=== PATIENT | female | born 1940 | race Caucasian/White ===

== ENCOUNTER → 2017-06-14 | Outpatient (CLI) | payer MEDICARE, BC ==
[~2017-06-14] MED LIST: ALTACE10 MG PO; BRILINTA90 MG PO; CELEXA10 MG PO; CHILDREN'S ASPI81 M1 PO; CLOPIDOGREL75 MG PO; DESIPRAMINE 50M50 M1 PO; DESIPRAMINE HC150 MG PO; HYDROCODONE-AP1 EAC6 PO; IRON325 PO; KLONOPIN1 MG PO; LEVAQUIN 500 M500 M2 PO; LEVAQUIN 750 M750 MG PO; LIPITOR10 MG PO; NEXIUM40 MG PO; NITROSTAT0.4 M1 PO; NORCO 5-325 TA1 EACH PO; NORPRAMIN PO; NORVASC2.5 MG PO; OMEPRAZOLE 20 M20 M1 PO; PLAVIX 75 MG TA75 M1 PO; PREVACID30 MG PO
== END ==
LOC: M.RAD 13:21
DX: Z12.31 Encounter for screening mammogram for malignant neoplasm of breast (principal)

== ENCOUNTER 2017-08-01 07:53 | Observation (INO) | payer MEDICARE, BC ==
[~2017-08-01] VITALS: Ht 167.6 cm; Wt 61.2 kg
[2017-08-01] VITALS (14 sets, daily range): BP systolic 105–166; BP diastolic 41–79
[~2017-08-01 07:53] MED LIST changes: -NITROSTAT0.4 M1 PO
[2017-08-01 08:28] LABS: HEMATOCRIT 27.8 % (37.0-47.0); HEMOGLOBIN 8.7 gm/dL (12.0-15.0); MCH 29.8 pg (26.0-34.0); MCHC 31.5 g/dL (28.0-37.0); MCV 94.8 fL (80.0-100.0); MPV 8.1 fl. (7.2-11.1); RBC 2.93 mil/uL (4.20-5.00); RDW-CV 15.9 % (10.5-14.5)
[2017-08-01 08:39] LABS: ANION GAP 11 mmol/L (7-16); BUN 15 mg/dL (7-18); CALCIUM 8.8 mg/dL (8.5-10.1); CHLORIDE 104 mmol/L (98-107); CO2 26 mmol/L (21-32); GLUCOSE 143 mg/dL (70-99); POTASSIUM 3.5 mmol/L (3.5-5.1); SODIUM 141 mmol/L (136-145)
[2017-08-01 08:40] LABS: APTT 28.8 Seconds (25.0-31.3); PROTIME 9.8 Seconds (9.20-11.50)
[2017-08-01 08:43] LABS: ALBUMIN 3.2 g/dL (3.4-5.0); ALKALINE PHOSPHATASE 100 U/L (46-116); CHOLESTEROL 117 mg/dL (<200); HDL CHOLESTEROL 46 mg/dL (>40); LDL CHOLESTEROL 55 mg/dL (<100); SGOT 16 U/L (15-37); SGPT 15 U/L (30-65); TC:HDL 2.5 Ratio (Not establshd); TOTAL BILIRUBIN 0.2 mg/dL (<0.1-1.0); TOTAL PROTEIN 7.1 g/dL (6.4-8.2); TRIGLYCERIDE 81 mg/dL (<150); VLDL 16 mg/dL (<40)
[2017-08-01 08:44] LABS: SERUM ASSESSMENT Clear
--- NOTE | 2017-08-01 17:17 | EKG ---
[place] [address] ELECTROCARDIOGRAM REPORT Name: CHIKI KHANNA Room: [address] ADM IN M.R.#: [id number] Admission: 08/01/17 Attend Phys: Edenilson Hector MD, Discharge: Date of : 42 Report #: [id number] THIS REPORT FOR: //name// [facility] Test Date: 2017-08-01 Test Time: 08:37:03 Pat Name: CHIKI KHANNA Department: Room: [facility] Gender: F Rag Boiler: [facility] : 1940 Requested By: Edenilson Hector Order Number: [id number] Reading MD: José Moore Measurements Intervals [place] Rate: 87 P: 81 ID: 161 QRS: 25 QRSD: 120 T: 74 QT: 415 QTc: 500 Interpretive Statements Sinus rhythm Nonspecific intraventricular conduction delay Anteroseptal infarct, old, possible Compared to ECG 06/04/2017 09:23:26 Intraventricular conduction delay now present Myocardial infarct finding still present Electronically Signed On 08-01-2017 17:17:19 SHERIFF'S SERGEANT by José Moore [email or web address] <ELECTRONICALLY SIGNED> By: José Moore MD, [facility] 08/01/17 1717 0837 0837 José Moore MD, [facility] /EPI
--- NOTE | 2017-08-01 17:18 | EKG ---
[place] [address] ELECTROCARDIOGRAM REPORT Name: EBONI KHANNAON Florencia Room: [address] ADM IN M.R.#: [id number] Admission: 08/01/17 Attend Phys: Edenilson Hector MD, Discharge: Date of : 42 Report #: [id number] THIS REPORT FOR: //name// [facility] Test Date: 2017-08-01 Test Time: 11:27:10 Pat Name: CHIKI KHANNA Department: Room: [facility] Gender: F New Media Strategist: : 1940 Requested By: Edenilson Hector Order Number: [id number] Concepcion MD: José Moore Measurements Intervals [place] Rate: 99 P: 82 ND: 171 QRS: 18 QRSD: 118 T: 76 QT: 411 QTc: 528 Interpretive Statements Sinus rhythm Right atrial enlargement LVH with secondary repolarization abnormality Anterior Q waves, possibly due to LVH Prolonged QT interval Compared to ECG 06/04/2017 09:23:26 Atrial abnormality now present Left ventricular hypertrophy now present Early repolarization now present Q waves now present Prolonged QT interval now present Myocardial infarct finding no longer present Electronically Signed On 08-01-2017 17:18:35 NUCLEAR RADIATION ENGINEER by oJsé Moore [email or web address] <ELECTRONICALLY SIGNED> By: José Moore MD, FACC 08/01/17 1718 1127 1127 José Moore MD, FACC /EPI
[2017-08-02] VITALS: BP 127/49
[2017-08-02 03:44] VITALS: BP 143/65
[2017-08-02 05:21] LABS: HEMOGLOBIN 7.2 gm/dL (12.0-15.0); MCH 29.9 pg (26.0-34.0); MCHC 31.5 g/dL (28.0-37.0); MCV 94.8 fL (80.0-100.0); MPV 8.2 fl. (7.2-11.1); RBC 2.43 mil/uL (4.20-5.00); RDW-CV 15.8 % (10.5-14.5); WBC 6.6 thou/uL (4.0-11.0)
[2017-08-02 05:50] LABS: CALCIUM 7.7 mg/dL (8.5-10.1); CREATININE 0.7 mg/dL (0.6-1.3); POTASSIUM 3.7 mmol/L (3.5-5.1)
[2017-08-02 05:58] LABS: TROPONIN-I LEVEL 0.61 ng/mL (<0.06)
[2017-08-02 07:45] VITALS: BP 139/62
[2017-08-02] MEDS ORDERED: NITROSTAT0.4 M1 PO (10:06)
--- NOTE | 2017-08-02 10:44 | CARD ---
[address] [address] CARDIAC CATH REPORT Name: CHIKI KHANNA Room: [address] IN ..#: [id number] Admission: 08/01/17 Attend Phys: Edenilson Hector MD, Discharge: Date of : 42 Report #: [id number] THIS REPORT FOR: //name// APPROVED REPORT Patient Details Patient Status: Out-Patient Room #: The patient is a 77 year-old female Event Personnel Edenilson Hector Outsole Molder, Rebecca Tomlinson RN RN, Jordan Peralta Svoboda, Mindy RTR Monitor Procedures Performed YADIRA Place w/wo Plasty Single DARIEL; left heart catheterization and selective coronary arteriography Indication Unstable angina Risk Factors Family HistoryPeripheral Vascular Disease, Hypercholesterolemia, Hypertension, Tobacco History () Previous Procedures/Diagnoses Previous PCI Admission/Lab Medications/Medications given during procedure Angiomax bolus and infusion Procedure Narrative The patient was brought electively to the Cardiac Catheterization Laboratory and was prepped and draped in a sterile manner. The right femoral was infiltrated with 1% Lidocaine subcutaneous anesthesia. A [place] 6 FR sheath was inserted into the Right Femoral Artery. Coronary angiography was performed using coronary diagnostic catheters. The right coronary system was accessed and visualized with a Diagnostic catheter. The left coronary system was accessed and visualized with a Diagnostic catheter. The left ventricle was accessed and visualized with a Diagnostic catheter. Left ventricular/Aortic Valve gradient assessed via catheter pullback. Pre-demployment femoral angiogram was performed . Closure device was deployed with a Fr MynxGrip 6/7F. The patient tolerated the procedure well and there were no complications associated with the procedure. [place] [address] CARDIAC CATH REPORT Name: CHIKI KHANNA Florencia Room: [address] IN [facility]#: [id number] Admission: 08/01/17 Attend Phys: Edenilson Hector MD, Discharge: Date of : 42 Report #: [id number] Intraoperative Conscious Sedation Sedation start time: 09:50 Case end Time: 10:58 Fentanyl 50 mcg Versed 1.5 mg Fluoro Time: 27.5 minutes Dose: DAP 32023 cGycm2 1368 mGy Contrast Type and Amount: Visipaque 255 ml Diagnostic Cath Left Main 0% narrowing LAD Widely patent proximalmid LAD stent with 0% narrowing Diagonal 1 40% proximal first diagonal narrowing Circumflex 30% mid vessel narrowing Right Coronary Dominant vessel with 30% proximal narrowing and 90% stenosis of a prominent posterior lateral branch of the distal right coronary artery Left Ventriculography Left Ventriculography was not performed. Hemodynamics The aortic pressure is 170/74 mmHg with a mean of 105 mmHg. The left ventricular pressure is 170/18ed mmHg with a mean of mmHg. The left ventricular end diastolic pressure is 18 mmHg. There was no gradient across the aortic valve upon pullback. PCI Technique Lesion Anticoagulation was achieved with Angiomax. Patient was preloaded with Angiomax IV 8.2 ml. Percutaneous coronary intervention was performed on the posterior lateral branch of the dominant right coronary artery. The lesion stenosis prior to intervention was 90% with STACY 3 flow. A 6FR LAUNCHER 3DRC Guide Catheter was used to engage the ostium. A Design2Launch: Momo Flex 300cm Interventional Guidewire was used to cross the lesion. BALLOON DILATION A Balloon catheter Mini Trek RX 2.0 X 12 was inserted and inflated up to 19.00atm for 11seconds. Additional Inflation: 16.00atm for 11seconds. Additional Inflation: 16.00atm for 10seconds. STENT DEPLOYMENT A drug-eluting stent Xience Alpine RX 2.25X15 was inserted and inflated up to 8.00atm for 5seconds. Additional Inflation: 9.00atm for 6seconds. [place] [address] CARDIAC CATH REPORT Name: CHIKI KHANNA Room: [address]#: [id number] Admission: 08/01/17 Attend Phys: Edenilson Hector MD, Discharge: Date of : 42 Report #: [id number] Final angiography reveals 0 % stenosis with STACY 3 flow. COMMENTS There is marked tortuosity of the proximal mid portions of the dominant right coronary artery; this required use of a guideliner support catheter within the 3 [facility] guiding catheter to achieve distal positioning of drug-eluting stent Conclusion #1 significant coronary artery disease characterized by the following: A widely patent proximalmid LAD stent, B 40% narrowing of the proximal portion of the first diagonal branch, C 30% narrowing of the midportion of the nondominant circumflex, D dominant right coronary artery with 30% proximal narrowing and 90% tubular narrowing of the prominent posterior lateral branch of the distal right coronary artery #2 moderate systemic systolic hypertension with moderate elevation of left ventricular end-diastolic pressure at rest #3 successful percutaneous coronary intervention with deployment of drug-eluting stent at the site of 90% narrowing of the posterolateral branch of the dominant right coronary artery with 0% residual narrowing following stent deployment and STACY-3 flow the distal vessel Recommendations Smoking Cessation Aggressive Medical Therapy Medications Administered Ticagrelor <ELECTRONICALLY SIGNED> By: Edenilson Hector MD, [facility] 08/02/17 1043 1043 1043Edenilson Hector MD, FAC /INF
--- NOTE | 2017-08-02 10:49 | H ---
[address] [address] HISTORY AND PHYSICAL Name: CHIKI KHANNA Room: [address] IN .R.#: [id number] Admission: 08/01/17 Attend Phys: Edenilson Hector MD, Discharge: Date of : 42 Report #: [id number] THIS REPORT FOR: //name// CC: Edenilson Chaudhry DATE OF SERVICE: 08/01/2017 HISTORY OF PRESENT ILLNESS: The patient is a 77-year-old female with known coronary artery disease, approximately 2 months status post stenting of the LAD in the context of an acute coronary syndrome. She is also noted to have a high-grade distal right coronary stenosis, which was not approached in the acute setting. Since then, she has noted mild chest discomfort and bilateral leg discomfort compatible with claudication. She has been compliant with dual-antiplatelet therapy in the form of aspirin, Brilinta, statin, in the form of atorvastatin 10 mg daily and additional noncardiac medicines. She ambulates with mild dyspnea in the setting of antecedent cigarette smoking. She notes occasional mild chest discomfort, but nothing as bad as associated with her acute coronary syndrome. PAST MEDICAL HISTORY: Remarkable for hypercholesterolemia, known coronary artery disease, hypertension, peripheral vascular disease and obstructive airways disease. SOCIAL HISTORY: The patient is . There is a significant antecedent cigarette smoking history. REVIEW OF SYSTEMS: Remarkable for the following positives: PULMONARY: She notes dyspnea on exertion. CARDIAC: There is occasional chest pain compatible with angina. PSYCHIATRIC: She notes chronic anxiety. PHYSICAL EXAMINATION: GENERAL: Demonstrates an elderly female in no acute distress. VITAL SIGNS: Blood pressure is 160/70, pulse rate is 74, respirations are 18 per minute. NECK: Jugular venous pressure is normal. CHEST: Clear with slightly decreased breath sounds diffusely. CARDIAC: Reveals normal first and second heart sounds without murmurs or gallops. ABDOMEN: Soft and nontender. EXTREMITIES: Without edema with 1-2+ femoral pulses and trace pedal pulses. There [place] [address] HISTORY AND PHYSICAL Name: CHIKI KHANNA Room: [address] IN ..#: [id number] Admission: 08/01/17 Attend Phys: Edenilson Hector MD, Discharge: Date of : 42 Report #: [id number] IMPRESSION: 1. Unstable angina. 2. Coronary artery disease, status post acute coronary syndrome interrupted by percutaneous coronary intervention to LAD 2 months ago. 3. Hypertension. 4. Hypercholesterolemia. 5. History of significant tobacco abuse. 6. Chronic obstructive pulmonary disease. 7. Chronic anxiety. RECOMMENDATIONS: Given the aforementioned clinical scenario, I would recommend recatheterization with definition of the recently deployed LAD stent with strong consideration of intervention to the distal right artery after review of the cineangiograms. <ELECTRONICALLY SIGNED> By: Edenilson Hector MD, [facility] 08/02/17 1049 1124 [id number] [facility]ector MD, [facility] /nt
--- NOTE | 2017-08-02 10:49 | D ---
[address] [address] DISCHARGE SUMMARY Name: CHIKI KHANNA Room: [address] IN M.R.#: [id number] Admission: 08/01/17 Attend Phys: Edenilson Hector MD, Discharge: Date of : 42 Report #: [id number] THIS REPORT FOR: //name// CC: Edenilson Ansariormick DATE OF SERVICE: 08/02/2017 FINAL DISCHARGE DIAGNOSES: 1. Unstable angina. 2. Coronary artery disease. 3. Status post prior percutaneous coronary intervention of the left anterior descending and more recent percutaneous coronary intervention of the distal right coronary artery on 08/01/2016. 4. Hypertension. 5. Emphysema. 6. Hyperlipoproteinemia. 7. Peripheral vascular disease. 8. Significant antecedent cigarette smoking. PROCEDURES: 08/01/2017-left heart catheterization, selective coronary arteriography and percutaneous coronary intervention with deployment of drug-eluting stent at site of 90% tubular stenosis in the prominent posterolateral branch of the distal right coronary artery. The patient is a very pleasant 77-year-old female with coronary and peripheral vascular disease. She has underlying hypertension, hyperlipoproteinemia, and emphysema. She presented several weeks ago with acute coronary syndrome and underwent stenting of the mid LAD with a good angiographic result. She had a high-grade distal right coronary artery stenosis noted at that time, which was not approached in that setting. Since then, she has done much better, but has occasional episode of chest discomfort reflecting myocardial ischemia. She has been compliant with dual antiplatelet therapy and her other prior cardiac medicines. In this setting, I performed recatheterization on 08/01/2017, which revealed a widely patent mid LAD stent with 90% stenosis of the posterolateral branch of the dominant right coronary artery. I placed one 2.25 x 15 mm Xience Alpine drug-eluting stent in the distal right coronary artery with 0% residual narrowing and STACY 3 flow of the distal vessel. The patient did well post-procedurally with good hemostasis at the [place] [address] DISCHARGE SUMMARY Name: CHIKI KHANNA Room: [address] IN ..#: [id number] Admission: 08/01/17 Attend Phys: Edenilson Hector MD, Discharge: Date of : 42 Report #: [id number] Laboratory on 08/02/2017, revealed a sodium of 144, potassium 3.7, BUN 14, creatinine 0.7. Hemoglobin 7.2, white blood cell count 6600 with 274,000 platelets. The patient ambulated in the hallways without difficulty and there was good hemostasis at the right femoral site of catheterization. She was discharged to home on the following medications: Aspirin 81 mg daily, atorvastatin 20 mg daily, Celexa 20 mg at bedtime, clonazepam 2 mg at bedtime, desipramine 150 mg at bedtime, ferrous sulfate 325 mg at bedtime, lansoprazole or Prevacid 30 mg daily, ramipril 10 mg b.i.d., ticagrelor 90 mg b.i.d., and p.r.n. sublingual nitroglycerin. The patient is scheduled to return to see me on 09/04/2017 at 1000 hours at the [facility] office with an echocardiogram on that date. Thus, the patient is discharged to home with followup as iterate above on the above described cardiac medicines. She is in stable condition. <ELECTRONICALLY SIGNED> By: Edenilson Hector MD, FACC 08/02/17 1049 0914 [id number] Hector MD, FACC /nt
--- NOTE | 2017-08-02 20:15 | EKG ---
[place] [address] ELECTROCARDIOGRAM REPORT Name: CHIKI KHANNA Room: [address] M.R.#: [id number] Admission: 08/01/17 Attend Phys: Edenilson Hector MD, Discharge: 08/02/17 Date of : 42 Report #: [id number] THIS REPORT FOR: //name// [facility] Test Date: 2017-08-02 Test Time: 03:05:33 Pat Name: CHIKI KHANNA Department: Room: [facility] Gender: F Epic Willow Analyst: : 1940 Requested By: Edenilson Hector Order Number: [id number] Reading MD: José Moore Measurements Intervals [place] Rate: 86 P: -27 [place]: 168 QRS: 27 QRSD: 106 T: -12 QT: 417 QTc: 499 Interpretive Statements Sinus rhythm Inferior infarct, old, possible Anteroseptal infarct, age indeterminate, possible Compared to ECG 08/01/2017 11:27:10 Left ventricular hypertrophy no longer present Early repolarization no longer present Prolonged QT interval no longer present Electronically Signed On 08-02-2017 20:15:38 KNOTTER by José Moore [email or web address] <ELECTRONICALLY SIGNED> By: José Moore MD, FACC 08/02/172014 0305 0305 José Moore MD, FAC /EPI
== END 2017-08-02 12:40 | disposition home or self-care (01) ==
LOC: M.CL 07:53 → M.2W 11:18 → M.TBA-CV 11:18 → M.2W 11:18
PROVIDERS: ADMIT Internal Medicine
DX: I25.110 Atherosclerotic heart disease of native coronary artery with unstable angina pectoris (principal); I10 Essential (primary) hypertension; E78.00 Pure hypercholesterolemia, unspecified; J44.9 Chronic obstructive pulmonary disease, unspecified; F41.9 Anxiety disorder, unspecified; J43.9 Emphysema, unspecified; E78.5 Hyperlipidemia, unspecified; Z87.891 Personal history of nicotine dependence

== ENCOUNTER → 2017-10-11 | Outpatient (CLI) | payer MEDICARE, BC ==
[~2017-10-11] MED LIST changes: +NITROSTAT0.4 M1 PO
== END ==
LOC: M.ULTRA 10:27
DX: N93.9 Abnormal uterine and vaginal bleeding, unspecified (principal); N85.8 Other specified noninflammatory disorders of uterus; I10 Essential (primary) hypertension; Z78.0 Asymptomatic menopausal state

== ENCOUNTER → 2018-02-03 | Outpatient (CLI) | payer MEDICARE, BC | LOC: M.RAD 15:05 | DX: M85.89 Other specified disorders of bone density and structure, multiple sites (principal); J43.1 Panlobular emphysema; Z78.0 Asymptomatic menopausal state ==

== ENCOUNTER → 2018-07-18 | Outpatient (CLI) | payer MEDICARE, BC ==
--- NOTE | 2018-07-22 13:44 | CARDNUC ---
[place] [address] CARDIAC NUCLEAR IMAGING REPORT Name: CHIKI KHANNA Room: [facility]#: [id number] Admission: 07/18/18 Attend Phys: Florencia Noble Discharge: Date of : 42 Date of Service: 07/22/18 1344 Report #: [id number] THIS REPORT FOR: //name// APPROVED REPORT Imaging Protocol: Rest Tc-99m/Stress Tc-99m 1 day Study performed: 07/18/2018 08:15:00 Indication: Dyspnea, s/p stent Patient Location: Out-Patient Stress Tech: Stephanie Theodore Stress Nurse: Josefina Vigil RN NM Tech:EDGARDO Corado Ht: 5 ft 6 in Wt: 127 lbs BSA: 1.65 m2 BMI: 20.49 Medical History Medical History: cardiomyopathy, copd, cad, hyperlipidemia, hypertension, pvd Medications: amlodipine, asa 81, ramapril, ticagrelor Allergies: sulfa Cardiac Risk Factors: age, hyperlipidemia, hypertension, pvd, tobacco, family hx Previous Cardiac Procedures: pci Exercise History: Indeterminate Resting Data Rest SPECT myocardial perfusion imaging was performed in supine position 30 minutes following the intravenous injection of 10.5 mCi of Tc-99m Sestamibi. Time of rest injection: 0820 Date: 07/18/2018 Time of rest imagin The images were gated to evaluate regional wall motion and calculate left ventricular ejection fraction. Administration Route: IV Administration Site: Left AC Pharmacologic Stress Pharmacologic stress test was performed by injecting Regadenoson 0.4 mg IV push over 10-15 seconds immediately followed by the intravenous injection of 33.2 mCi of Tc-99m Sestamibi. Time of stress injection: 0930 Time of stress imagin Administration Route: [place] [address] CARDIAC NUCLEAR IMAGING REPORT Name: CHIKI KHANNA Room: [facility] Kelvin#: [id number] Admission: 07/18/18 Attend Phys: Florencia Noble Discharge: Date of : 42 Date of Service: 07/22/18 1344 Report #: [id number] Administration Site: Left AC Gated Stress SPECT was performed 40 minutes after stress injection. The images were gated to evaluate regional wall motion and calculate left ventricular ejection fraction. Prone imaging was performed. Stress Test Details Stress Test: Pharmacologic stress testing performed using 0.4 mg of regadenoson per 5 mL given IV over 10 seconds. Reason for pharmacologic stress test: physical limitation. HR Max Heart Rate (APMHR): 143 bpm Resting HR: 88 bpm Target HR (85% APMHR): 121 bpm Max HR Achieved: 98 bpm % of APMHR: 68 Recovery HR: 97 bpm HR response to stress: Normal HR response to stress BP Resting BP: 187/79 mmHg Max BP: 111/61 mmHg Recovery BP: 163/75 mmHg BP response to stress: Normal blood pressure response to stress. ECG Resting ECG: Sinus Rhythm Stress ECG: Sinus Rhythm ST Change: none Recovery ECG: Sinus Rhythm Recovery ST Change: negative Clinical Reason for Termination: Completed protocol Stress Symptoms: None Exercise duration: 0 min sec Exercise capacity: 1 METs Nurse Comments pt gait too unsteady to walk on treadmill Stress ECG Conclusion negative Study Quality Study: [place] [address] CARDIAC NUCLEAR IMAGING REPORT Name: CHIKI KHANNA Room: [facility]#: [id number] Admission: 07/18/18 Attend Phys: Florencia Noble Discharge: Date of : 42 Date of Service: 07/22/18 1344 Report #: [id number] Artifact: Mild Motion artifact Lung Uptake: Normal Study Data At rest, the left ventricular ejection fraction was 65%.. Post stress, the left ventricular ejection was 51%.. SSS: 8 SRS: 2 SDS: 6 TID = 1.10. Perfusion Review of SPECT images reveal at rest a small to moderate but severe intensity distal anterior and apical defect and normal perfusion all other segments. When imaged following stress the defect slightly worsens.Concerning for a small amount of distal anterior,apical ischemia.Stress prone images are unchanged from stress supine. Images were reviewed using Froontis. Wall Motion mild hypokinesis of dista anterior wall Nuclear Conclusion ECG Findings: negative for ischemia Clinical Findings: negative for ischemia Nuclear Findings: positive for ischemia Exercise Capacity: not assessed Left Ventricular Function: normal Risk Study: moderate Findings concerning for a mixed ischemia and infarct area which is small to moderate, of the distal anterior wall, apex.A moderate risk study. <Conclusion> negative <ELECTRONICALLY SIGNED> By: Cortes Meza MD, FACC 07/22/18 1344 1344 1344 Cortes Meza MD, FACC /INF
== END ==
LOC: M.NUC 06-24 17:52
DX: I25.119 Atherosclerotic heart disease of native coronary artery with unspecified angina pectoris (principal); E78.5 Hyperlipidemia, unspecified; I10 Essential (primary) hypertension; J44.9 Chronic obstructive pulmonary disease, unspecified; Z95.5 Presence of coronary angioplasty implant and graft

== ENCOUNTER → 2019-04-07 | Outpatient (CLI) | payer MEDICARE, BC ==
--- NOTE | 2019-04-07 14:52 | 2DMMODE ---
[place] [address] 2 D/M-MODE ECHOCARDIOGRAM Name: CHIKI KHANNA Room: [facility]#: [id number] Admission: 04/07/19 Attend Phys: Florencia Noble Discharge: Date of : 42 Date of Service: 04/07/19 1452 Report #: [id number] THIS REPORT FOR: //name// APPROVED REPORT Study performed: 04/07/2019 13:42:16 EXAM: Comprehensive 2D, Doppler, and color-flow Echocardiogram Patient Location: Out-Patient BSA: 1.65 HR: 98 bpm BP: 120/70 mmHg Other Information Study Quality: Good Indications CAD Hypertension/HDD 2D Dimensions IVSd: 13.60 (7-11mm) LVOT Diam: 20.47 (18-24mm) LVDd: 37.33 mm PWd: 9.90 (7-11mm) Ascending Ao: 30.14 (22-36mm) LVDs: 25.92 (25-40mm) Aortic Root: 26.00 mm Volumes Left Atrial Volume (Systole) LA ESV Index: 16.60 mL/m2 Aortic Valve AoV Peak Bert.: 1.16 m/s AO Peak Gr.: 5.34 mmHg LVOT Max P.73 mmHg AO Mean Gr.: 2.99 mmHg LVOT Mean P.36 mmHg LVOT Max V: 1.09 m/s AO V2 VTI: 21.48 cm LVOT Mean V: 0.71 m/s DESI (VTI): 3.02 cm2 LVOT V1 VTI: 19.69 cm Mitral Valve E/A Ratio: 0.53 MV Decel. Time: 252.78 ms MV E Max Bert.: 0.50 m/s MV PHT: 73.31 [place] [address] 2 D/M-MODE ECHOCARDIOGRAM Name: CHIKI KHANNA WILLY Room: [facility]#: [id number] Admission: 04/07/19 Attend Phys: Florencia Noble Discharge: Date of : 42 Date of Service: 04/07/19 1452 Report #: [id number] MVA (PHT): 3.00 cm2 TDI E/Lateral E': 8.33 E/Medial E': 7.14 Medial E' Bert.: 0.07 m/s Lateral E' Bert.: 0.06 m/s Pulmonary Valve PV Peak Bert.: 0.91 m/s PV Peak Gr.: 3.34 mmHg Left Ventricle The left ventricle is normal size. There is normal LV segmental wall motion. Mild concentric left ventricular hypertrophy. Left ventricular systolic function is normal. LVEF is 55-60%. Grade I - abnormal relaxation pattern. Right Ventricle The right ventricle is normal size. The right ventricular systolic function is normal. Atria The left atrium size is normal. The right atrium size is normal. Aortic Valve The aortic valve is normal in structure. No aortic regurgitation is present. There is no aortic valvular stenosis. Mitral Valve The mitral valve is mildly thickened. Mild mitral regurgitation. No evidence of mitral valve stenosis. Tricuspid Valve The tricuspid valve is normal in structure. There is no tricuspid valve regurgitation noted. Pulmonic Valve The pulmonary valve is normal in structure. There is no pulmonic valvular regurgitation. Great Vessels The aortic root is normal in size. IVC is normal in size and collapses >50% with inspiration. Pericardium There is no [place] [address] 2 D/M-MODE ECHOCARDIOGRAM Name: CHIKI KHANNA Room: [facility]#: [id number] Admission: 04/07/19 Attend Phys: Florencia Noble Discharge: Date of : 42 Date of Service: 04/07/19 1452 Report #: [id number] <Conclusion> The left ventricle is normal size. Mild concentric left ventricular hypertrophy. Left ventricular systolic function is normal. LVEF is 55-60%. Grade I - abnormal relaxation pattern. Mild mitral regurgitation. IVC is normal in size and collapses >50% with inspiration. <ELECTRONICALLY SIGNED> By: José Moore MD, FACC 04/07/19 145 51 51 José Moore MD, FACC /INF
== END ==
LOC: M.CRD 13:36
DX: I34.0 Nonrheumatic mitral (valve) insufficiency (principal); I25.119 Atherosclerotic heart disease of native coronary artery with unspecified angina pectoris; I11.9 Hypertensive heart disease without heart failure; Z88.2 Allergy status to sulfonamides

== ENCOUNTER → 2019-12-17 | Outpatient (CLI) | payer MEDICARE, BC | LOC: M.LAB 08:38 | PROVIDERS: ATTEND Internal Medicine Gastroenterology | DX: Z11.59 Encounter for screening for other viral diseases (principal); Z01.812 Encounter for preprocedural laboratory examination; R19.5 Other fecal abnormalities ==

== ENCOUNTER → 2019-12-25 | Outpatient (CLI) | payer MEDICARE, BC ==
[2019-12-25 14:00] LABS: ABSOLUTE BASOPHILS 0.1 thou/uL (0.0-0.2); ABSOLUTE EOSINOPHILS 0.1 thou/uL (0.0-0.7); ABSOLUTE MONOCYTES 0.2 thou/uL (0.0-1.2); ABSOLUTE NEUTROPHILS 4.3 thou/uL (1.6-8.1); BASOPHILS 1.2 %; EOSINOPHILS 1.6 %; HEMATOCRIT 33.4 % (37.0-47.0); HEMOGLOBIN 10.9 gm/dL (12.0-15.0); LYMPHOCYTES 18.1 %; MCH 29.4 pg (26.0-34.0); MCHC 32.7 g/dL (28.0-37.0); MCV 89.8 fL (80.0-100.0); MPV 7.9 fl. (7.2-11.1); NUCLEATED RBCS 0 /100WBC; PLATELET COUNT* 269 thou/uL (150-400); POLYS 75.1 %; RBC 3.72 mil/uL (4.20-5.00); RDW-CV 16.2 % (10.5-14.5); WBC 5.7 thou/uL (4.0-11.0)
[2019-12-25 14:13] LABS: ALBUMIN 3.4 g/dL (3.4-5.0); CALCIUM 8.6 mg/dL (8.5-10.1); POTASSIUM 3.2 mmol/L (3.5-5.1); TOTAL BILIRUBIN 0.2 mg/dL (<0.1-1.0); TOTAL PROTEIN 7.1 g/dL (6.4-8.2)
== END ==
LOC: M.LAB 13:00 → M.CT 14:00
PROVIDERS: ATTEND Internal Medicine Gastroenterology
DX: C18.9 Malignant neoplasm of colon, unspecified (principal); K44.9 Diaphragmatic hernia without obstruction or gangrene; J43.9 Emphysema, unspecified; D50.9 Iron deficiency anemia, unspecified; N28.1 Cyst of kidney, acquired; N20.0 Calculus of kidney; R19.09 Other intra-abdominal and pelvic swelling, mass and lump; K63.89 Other specified diseases of intestine; Z72.0 Tobacco use

== ENCOUNTER → 2020-01-14 | Outpatient (CLI) | payer MEDICARE, BC ==
--- NOTE | 2020-01-14 16:25 | CARDNUC ---
[place] [address] CARDIAC NUCLEAR IMAGING REPORT Name: RAMANALESTERCHIKI M Room: [facility]#: [id number] Admission: 01/14/20 Attend Phys: Florencia Noble Discharge: Date of : 42 Date of Service: 01/14/20 1625 Report #: [id number] THIS REPORT FOR: cc: Violet Chaudhry Linda J. DO Liston, Michael J. MD [facility] ~ APPROVED REPORT Study performed: 01/14/2020 14:23:06 Exam: Nuclear Stress Test Indication: Pre-Operative CV evaluation Patient Location: Out-Patient Stress Tech: Emilee Dai Stress Nurse: Josefina Vigil RN NM Tech:EDGARDO Corado Ht: 5 ft 6 in Wt: 128 lbs BSA: 1.65 m2 BMI: 20.65 Medical History Medical History: emphysema, , CAD s/p stent, Cardiomyopathy, COPD, HTN, Hyperlipidemia, Smoking, Pvd Medications: asa 81, atorvastatin, ramipril, brilinta Allergies: sulfa Cardiac Risk Factors: Age, Current Smoker, FHX of CAD, HTN, Hyperlipidemia, PVD Previous Cardiac Procedures: PCI Exercise History: Sedentary Stress Test Details Stress Test: Pharmacologic stress testing performed using 0.4 mg of regadenoson per 5 mL given IV over 10 seconds. Reason for pharmacologic stress test: physical limitation. HR Resting HR: 93 bpm Max Heart Rate (APMHR): 142 bpm Max HR Achieved: 101 bpm Target HR (85% APMHR): 120 bpm % of APMHR: 71 Recovery HR: 99 bpm BP Resting BP: 197/91 mmHg Max BP: 122/65 [place] [address] CARDIAC NUCLEAR IMAGING REPORT Name: CHIKI KHANNA Room: [facility]#: [id number] Admission: 01/14/20 Attend Phys: Florencia Noble Discharge: Date of : 42 Date of Service: 01/14/20 1625 Report #: [id number] Resting ECG: Sinus Rhythm Stress ECG: Sinus Tachycardia ST Change: None Arrhythmia: None Recovery ECG: Sinus Rhythm Recovery ST Change: None Recovery Arrhythmia: None Clinical Reason for Termination: Completed protocol Exercise duration: 0 min sec The patient tolerated Lexiscan infusion without significant cardiac symptoms. Nurse Comments pt unable to walk on treadmill due to generalized weakness. pt bp was 212/112, verified with manual bp. 10 mg hydralizine was ordered and given per dr chirinos order.pt had uneventful test Stress ECG Conclusion Baseline twelve-lead EKG shows sinus rhythm without significant ST segment abnormality. EKGs obtained during and post Lexiscan infusion shows sinus rhythm and sinus tachycardia with no significant ST segment changes when compared to baseline. There were no stress-induced arrhythmias. NM EXAM: Myocardial Perfusion REST/STRESS Imaging Protocol: Rest Tc-99m/Stress Tc-99m 1 day Resting Data Rest SPECT myocardial perfusion imaging was performed in supine position 30 minutes following the intravenous injection of 10.6 mCi of Tc-99m Sestamibi. Time of rest injection: 1245 Date: 01/14/2020 The images were gated to evaluate regional wall motion and calculate left ventricular ejection fraction. Administration Route: IV Administration Site: Right Hand Pharmacologic Stress Pharmacologic stress test was performed by injecting Regadenoson 0.4 mg IV push followed by the intravenous injection of 34.9 mCi of Tc-99m Sestamibi. Time of stress injection: 1450 Date: 01/14/2020 [place] [address] CARDIAC NUCLEAR IMAGING REPORT Name: CHIKI KHANNA Room: [facility]#: [id number] Admission: 01/14/20 Attend Phys: Florencia Noble Discharge: Date of : 42 Date of Service: 01/14/20 1625 Report #: [id number] Administration Route: IV Administration Site: Right Hand Gated Stress SPECT was performed 40 minutes after stress injection. The images were gated to evaluate regional wall motion and calculate left ventricular ejection fraction. Stress only was performed in the Supine position. Study Quality Study: Good Artifact: No artifact Study Data At rest, the left ventricular ejection fraction was 61%.. Post stress, the left ventricular ejection was 65%.. TID = 1.07. Perfusion There is a small in size moderate in intensity fixed defect of the mid anterior and anteroseptal wall. No other significant fixed or reversible defects are identified. Wall Motion There is a focal wall motion abnormality in the mid anterior and anteroseptal wall. Global LV systolic function is preserved. Nuclear Conclusion ECG Findings: negative for ischemia Clinical Findings: negative for ischemia Nuclear Findings: negative for ischemia Exercise Capacity: not assessed Left Ventricular Function: Preserved Perfusion study suggest a focal infarct of the mid anterior anteroseptal wall. There was no evidence of stress-induced ischemia. Global LV systolic function is preserved. This is not a high risk study. <Conclusion> Baseline twelve-lead EKG shows sinus rhythm without significant ST segment abnormality. EKGs obtained during and post Lexiscan infusion shows sinus rhythm and sinus tachycardia with no [place] [address] CARDIAC NUCLEAR IMAGING REPORT Name: CHIKI KHANNA Room: [facility]#: [id number] Admission: 01/14/20 Attend Phys: Florencia Noble Discharge: Date of : 42 Date of Service: 01/14/20 1625 Report #: [id number] segment changes when compared to baseline. There were no stress-induced arrhythmias. <ELECTRONICALLY SIGNED> By: José Moore MD, FACC 01/14/20 1625 1625 1625 José Moore MD, FAC /INF
== END ==
LOC: M.NUC 04-08 11:34 → M.CRD 11-23 08:00 → M.NUC 11-23 08:00
PROVIDERS: ATTEND Internal Medicine
DX: I25.10 Atherosclerotic heart disease of native coronary artery without angina pectoris (principal); Z95.5 Presence of coronary angioplasty implant and graft

== ENCOUNTER 2020-03-15 12:46 | Emergency (ER) | payer MEDICARE, BC ==
[~2020-03-15] VITALS: Ht 160 cm; Wt 58.1 kg
[2020-03-15] MEDS ORDERED: NEXIUM40 M2 PO (12:58)
[2020-03-15] MEDS ORDERED: NORCO 5-325 TA1 EAC2 PO (16:31)
[2020-03-15 16:38] VITALS: BP 177/86
== END 2020-03-15 16:39 | disposition home or self-care (01) ==
LOC: M.ERS 12:46
DX: S22.42XA Multiple fractures of ribs, left side, initial encounter for closed fracture (principal); I10 Essential (primary) hypertension; E78.5 Hyperlipidemia, unspecified; I25.10 Atherosclerotic heart disease of native coronary artery without angina pectoris; I73.9 Peripheral vascular disease, unspecified; Z95.5 Presence of coronary angioplasty implant and graft; Z88.2 Allergy status to sulfonamides; X58.XXXA Exposure to other specified factors, initial encounter; Y93.89 Activity, other specified; Y92.89 Other specified places as the place of occurrence of the external cause; Y99.8 Other external cause status

== ENCOUNTER 2020-05-04 12:30 | Emergency (ER) | payer MEDICARE, BC ==
[~2020-05-04] VITALS: Ht 167.6 cm; Wt 50.4 kg
[~2020-05-04 12:30] MED LIST changes: +NEXIUM40 M2 PO; +NORCO 5-325 TA1 EAC2 PO
[2020-05-04 12:45] VITALS: BP 115/64
== END 2020-05-04 13:23 | disposition home or self-care (01) ==
LOC: M.ERS 12:30
DX: S01.112D Laceration without foreign body of left eyelid and periocular area, subsequent encounter (principal); I25.10 Atherosclerotic heart disease of native coronary artery without angina pectoris; I10 Essential (primary) hypertension; E78.5 Hyperlipidemia, unspecified; Z88.2 Allergy status to sulfonamides; X58.XXXD Exposure to other specified factors, subsequent encounter

== ENCOUNTER 2020-06-26 13:39 | Emergency (ER) | payer MEDICARE, BC ==
[~2020-06-26] VITALS: Ht 167.6 cm; Wt 51.3 kg
[2020-06-26 14:01] LABS: ABSOLUTE LYMPHOCYTES 0.5 thou/uL (0.8-5.3); ABSOLUTE MONOCYTES 0.5 thou/uL (0.0-1.2); ABSOLUTE NEUTROPHILS 4.9 thou/uL (1.6-8.1); BASOPHILS 0.8 %; EOSINOPHILS 0.6 %; HEMATOCRIT 26.3 % (37.0-47.0); HEMOGLOBIN 8.7 gm/dL (12.0-15.0); LYMPHOCYTES 8.3 %; MCH 29.6 pg (26.0-34.0); MCHC 32.9 g/dL (28.0-37.0); MCV 90.1 fL (80.0-100.0); MONOCYTES 7.9 %; MPV 7.9 fl. (7.2-11.1); NUCLEATED RBCS 0 /100WBC; PLATELET COUNT* 309 thou/uL (150-400); POLYS 82.4 %; RBC 2.92 mil/uL (4.20-5.00); RDW-CV 17.7 % (10.5-14.5); WBC 5.9 thou/uL (4.0-11.0)
[2020-06-26 14:08] LABS: CALCIUM 8.5 mg/dL (8.5-10.1); CREATININE 1.2 mg/dL (0.6-1.3); POTASSIUM 3.6 mmol/L (3.5-5.1)
[2020-06-26 14:11] LABS: APTT 29.9 Seconds (25.0-31.3); PROTIME 9.8 Seconds (9.20-11.50)
[2020-06-26 14:12] LABS: ALBUMIN 2.4 g/dL (3.4-5.0); TOTAL BILIRUBIN 0.4 mg/dL (<0.1-1.0); TOTAL PROTEIN 6.4 g/dL (6.4-8.2)
[2020-06-26 14:26] LABS: INR < 0.9
[2020-06-26 16:27] LABS: URINE BILIRUBIN NEGATIVE (Negative); URINE BLOOD 1+ (Negative); URINE COLOR YELLOW; URINE GLUCOSE-RANDOM NEGATIVE (Negative); URINE KETONES TRACE (Negative); URINE LEUKOCYTES-REFLEX 1+ (Negative); URINE NITRITE-REFLEX NEGATIVE (Negative); URINE PROTEIN 2+ (Negative); URINE SPECIFIC GRAVITY <= 1.005 (1.005-1.030); URINE UROBILINOGEN 0.2 E.U./dl (0.2-1.0)
[2020-06-26 16:28] LABS: URINE CLARITY CLOUDY
[2020-06-26 16:34] LABS: BACTERIA-REFLEX >30 Many /HPF (None Seen); CASTS None Seen /LPF (None Seen); CRYSTALS None Seen /LPF (None Seen); SQUAMOUS >10 Many /LPF (0-3); URINE RBC 3-10 Few /HPF (0-2); URINE WBC-REFLEX >25 Many /HPF (0-5)
[2020-06-26 18:10] VITALS: BP 167/82
--- NOTE | 2020-06-27 10:10 | EKG ---
[place] [address] ELECTROCARDIOGRAM REPORT Name: CHIKI KHANNA Room: [facility]#: [id number] Admission: 06/26/20 Attend Phys: Discharge: 06/26/20 Date of : 42 Date of Service: 06/26/20 1358 Report #: [id number] THIS REPORT FOR: //name// [facility] ED Test Date: 2020-06-26 Test Time: 13:58:50 Pat Name: CHIKI KHANNA Department: Room: Gender: Orthodontic Technician: : 1940 Requested By: Sukhjinder Chance Order Number: [id number] MD: Edenilson Hector Measurements Intervals [place] Rate: 97 P: 74 LA: 157 QRS: 22 QRSD: 112 T: 72 QT: 400 QTc: 508 Interpretive Statements Sinus rhythm Consider left atrial enlargement Anteroseptal infarct, old possible Prolonged QT interval Baseline wander in lead(s) II,III,aVF,V1,V2,V5 Compared to ECG 08/02/2017 03:05:33 Prolonged QT interval now present Myocardial infarct finding still present Electronically Signed On 06-27-2020 10:09:47 WAREHOUSE ADMINISTRATIVE ASSISTANT by Edenilson Hector [email or web address] <ELECTRONICALLY SIGNED> By: Edenilson Hector MD, [facility] 06/27/20 1009 1358 1358 Edenilson Hector MD, [facility] /EPI
== END 2020-06-26 18:18 | disposition short-term general hospital (02) ==
LOC: M.ERS 13:39
PROVIDERS: Physician Assistant
DX: L02.211 Cutaneous abscess of abdominal wall (principal); Z20.828 Contact with and (suspected) exposure to other viral communicable diseases; R11.10 Vomiting, unspecified; K56.699 Other intestinal obstruction unspecified as to partial versus complete obstruction; N39.0 Urinary tract infection, site not specified; I25.10 Atherosclerotic heart disease of native coronary artery without angina pectoris; I10 Essential (primary) hypertension; E78.5 Hyperlipidemia, unspecified; Z98.42 Cataract extraction status, left eye; Z79.899 Other long term (current) drug therapy; Z88.2 Allergy status to sulfonamides; Z98.41 Cataract extraction status, right eye

== ENCOUNTER → 2020-09-20 | Outpatient (CLI) | payer MEDICARE, BC ==
[2020-09-20 10:06] LABS: ABSOLUTE BASOPHILS 0.1 thou/uL (0.0-0.2); ABSOLUTE EOSINOPHILS 0.2 thou/uL (0.0-0.7); ABSOLUTE MONOCYTES 0.3 thou/uL (0.0-1.2); BASOPHILS 1.3 %; EOSINOPHILS 2.6 %; HEMATOCRIT 30.1 % (37.0-47.0); HEMOGLOBIN 9.4 gm/dL (12.0-15.0); LYMPHOCYTES 14.8 %; MCH 28.9 pg (26.0-34.0); MCHC 31.3 g/dL (28.0-37.0); MCV 92.1 fL (80.0-100.0); MPV 8.1 fl. (7.2-11.1); NUCLEATED RBCS 0 /100WBC; PLATELET COUNT* 311 thou/uL (150-400); POLYS 77.3 %; RBC 3.27 mil/uL (4.20-5.00); RDW-CV 18.4 % (10.5-14.5); WBC 6.4 thou/uL (4.0-11.0)
[2020-09-20 10:56] LABS: % SATURATION 7 % (20-39); IRON 27 ug/dL (50-175)
[2020-09-20 11:14] LABS: ESR (SEDRATE) 27 mm/hr (0-30)
== END ==
LOC: M.LAB 09:42 → M.CT 11:00
PROVIDERS: ATTEND Internal Medicine Gastroenterology
DX: N28.1 Cyst of kidney, acquired (principal); D50.9 Iron deficiency anemia, unspecified; Z85.038 Personal history of other malignant neoplasm of large intestine; J84.10 Pulmonary fibrosis, unspecified; K44.9 Diaphragmatic hernia without obstruction or gangrene; M25.78 Osteophyte, vertebrae

== ENCOUNTER 2020-11-27 10:34 | Emergency (ER) | payer MEDICARE, BC ==
[~2020-11-27] VITALS: Ht 167.6 cm; Wt 47.6 kg
[2020-11-27 10:50] LABS: URINE BILIRUBIN NEGATIVE (Negative); URINE BLOOD TRACE (Negative); URINE CLARITY CLEAR; URINE COLOR YELLOW; URINE GLUCOSE-RANDOM NEGATIVE (Negative); URINE KETONES NEGATIVE (Negative); URINE LEUKOCYTES-REFLEX 3+ (Negative); URINE NITRITE-REFLEX NEGATIVE (Negative); URINE PROTEIN NEGATIVE (Negative); URINE SPECIFIC GRAVITY 1.015 (1.005-1.030); URINE UROBILINOGEN 0.2 E.U./dl (0.2-1.0)
[2020-11-27 11:04] LABS: SQUAMOUS 0-3 Few /LPF (0-3); URINE RBC None Seen /HPF (0-2); WBC CLUMPS Few (None Seen)
[2020-11-27 11:05] LABS: BACTERIA-REFLEX >30 Many /HPF (None Seen); CASTS None Seen /LPF (None Seen); CRYSTALS None Seen /LPF (None Seen); MUCUS None Seen strn/LPF (None Seen)
[2020-11-27] MEDS ORDERED: PYRIDIUM100 M1 PO (11:15)
[2020-11-27] MEDS ORDERED: CEPHALEXIN500 MG PO (11:15)
[2020-11-27 11:38] VITALS: BP 188/71
== END 2020-11-27 11:39 | disposition home or self-care (01) ==
LOC: M.ERS 10:34
PROVIDERS: Emergency Medicine Emergency Medical Services
DX: N39.0 Urinary tract infection, site not specified (principal); I10 Essential (primary) hypertension; E78.5 Hyperlipidemia, unspecified; I25.10 Atherosclerotic heart disease of native coronary artery without angina pectoris; F17.210 Nicotine dependence, cigarettes, uncomplicated; Z88.2 Allergy status to sulfonamides; Z85.038 Personal history of other malignant neoplasm of large intestine

== ENCOUNTER → 2020-12-15 | Outpatient (CLI) | payer MEDICARE, BC ==
[~2020-12-15] MED LIST changes: +CEPHALEXIN500 MG PO; +PYRIDIUM100 M1 PO
[2020-12-15 16:20] LABS: ABSOLUTE BASOPHILS 0.1 thou/uL (0.0-0.2); ABSOLUTE EOSINOPHILS 0.1 thou/uL (0.0-0.7); ABSOLUTE LYMPHOCYTES 0.8 thou/uL (0.8-5.3); ABSOLUTE MONOCYTES 0.3 thou/uL (0.0-1.2); ABSOLUTE NEUTROPHILS 4.3 thou/uL (1.6-8.1); BASOPHILS 1.2 %; EOSINOPHILS 2.1 %; HEMATOCRIT 20.5 % (37.0-47.0); LYMPHOCYTES 13.9 %; MCH 23.7 pg (26.0-34.0); MCHC 31.5 g/dL (28.0-37.0); MCV 75.1 fL (80.0-100.0); MONOCYTES 5.5 %; NUCLEATED RBCS 0 /100WBC; PLATELET COUNT* 274 thou/uL (150-400); POLYS 77.3 %; RBC 2.73 mil/uL (4.20-5.00); RDW-CV 17.4 % (10.5-14.5); WBC 5.6 thou/uL (4.0-11.0)
[2020-12-15 16:28] LABS: HEMOGLOBIN 6.5 gm/dL (12.0-15.0)
[2020-12-15 16:37] LABS: ALBUMIN 3.2 g/dL (3.4-5.0); CALCIUM 8.4 mg/dL (8.5-10.1); POTASSIUM 3.3 mmol/L (3.5-5.1); TOTAL BILIRUBIN 0.2 mg/dL (<0.1-1.0); TOTAL PROTEIN 7.1 g/dL (6.4-8.2)
== END ==
LOC: M.LAB 15:36
PROVIDERS: ATTEND Surgery
DX: C18.9 Malignant neoplasm of colon, unspecified (principal)

== ENCOUNTER → 2021-01-10 | Outpatient (CLI) | payer MEDICARE, BC ==
[2021-01-10 13:48] LABS: HEMATOCRIT 33.3 % (37.0-47.0); HEMOGLOBIN 10.6 gm/dL (12.0-15.0); MCH 25.7 pg (26.0-34.0); MCV 80.3 fL (80.0-100.0); MPV 7.8 fl. (7.2-11.1); RBC 4.14 mil/uL (4.20-5.00); RDW-CV 23.6 % (10.5-14.5); WBC 5.5 thou/uL (4.0-11.0)
== END ==
LOC: M.LAB 13:26
PROVIDERS: ATTEND Internal Medicine Gastroenterology
DX: D50.9 Iron deficiency anemia, unspecified (principal)

== ENCOUNTER → 2021-01-17 | Outpatient (CLI) | payer MEDICARE, BC | LOC: M.ULTRA 01-04 11:00 | PROVIDERS: ATTEND Internal Medicine | DX: I70.293 Other atherosclerosis of native arteries of extremities, bilateral legs (principal) ==